=== PATIENT | male | born 1950 | race Caucasian/White ===

== ENCOUNTER → 2017-07-15 | Outpatient (CLI) | payer BC, MEDICARE ==
--- NOTE | 2017-07-15 08:15 | US ---
EXAMINATION TYPE: US abdomen complete DATE OF EXAM: 07/15/2017 COMPARISON: NONE CLINICAL HISTORY: 67-year-old male abnormal Liver functions Studies R94.5. TECHNIQUE: Multiple sonographic images of the abdomen are obtained. FINDINGS: Liver Length: 14.9 cm Gallbladder: Surgically absent CBD: 6.4 mm Spleen: 13.9 cm Right Kidney: 11.8 x 5.5 x 5.2 cm Left Kidney: 10.9 x 5.9 x 5.4 cm Pancreas: Obscured by bowel gas Liver: Heterogeneous and echogenic. The secondary limits assessment for focal lesion. No obvious lesi on identified. Gallbladder: Surgically absent CBD: Borderline dilated but within normal limits postcholecystectomy status. Spleen: Borderline enlarged Right Kidney: No hydronephrosis Left Kidney: No hydronephrosis Upper IVC: No gross abnormality Abd Aorta: portions of prox and distal obscured by overlying bowel gas, portions visualized wnl IMPRESSION: 1. Heterogeneous and echogenic liver suggests hepatic steatosis or other nonspecific hepatocellular d isease. Correlate with LFTs, liver profile, and patient risk factors. 2. Bile duct caliber (6.4 mm) is within normal limits postcholecystectomy status. 3. Borderline splenomegaly (13.9 cm).
== END | disposition home or self-care (01) ==
LOC: RADUSWWP 06:45
PROVIDERS: ATTEND Internal Medicine
DX: R16.1 Splenomegaly, not elsewhere classified (principal); Z90.49 Acquired absence of other specified parts of digestive tract
CPT/HCPCS: 76700

== ENCOUNTER → 2018-02-05 | Outpatient (CLI) | payer MEDICARE ==
[~2018-02-05] MED LIST: REGADENOSON 0.4 MG/5 ML SYRINGE IV ONE
--- NOTE | 2018-02-05 13:25 | EST ---
EXERCISE STRESS AGE: 67 SEX: M HT: 68" WT: 265 PROTOCOL: Lexiscan Cardiolite Stress Test HEART RATE REST: 67 BLOOD PRESSURE REST: 131/87 MAXIMUM HEART RATE ACHIEVED: 85 MAXIMUM BLOOD PRESSURE: 149/73 INDICATIONS: Chest pain. CLINICAL INFORMATION: STRESS DATA: Pretesting physical examination showed a heart rate of 67, pressure is 131/87 mmHg. Baseline EKG showed sinus mechanism; 0.4 mg of Lexiscan was given over 15 seconds per protocol with max heart rate was 85 beats per minute and maximum pressure was 149/73 mmHg. Clinically, the patient did not have any symptoms of chest pain or discomfort and the EKG did not show any significant ST or T-wave abnormalities concerning for ischemia. CONCLUSION: 1. Nondiagnostic electrocardiogram stress testing in response to Lexiscan. 2. Please follow up on the Cardiolite portion on a separate report from the Radiology Department. MMODL / IJN: [id number] /
--- NOTE | 2018-02-05 15:31 | NM ---
EXAMINATION TYPE: NM stress lexiscan cardiolite DATE OF EXAM: 02/05/2018 COMPARISON: NONE HISTORY: 67-year-old male with chest pain and palpitations TECHNIQUE: After the intravenous administration of 10.8 mCi Tc 99m Sestamibi - Cardiolite resting SP ECT images acquired 45 minutes post injection. The patient received 0.4mg Lexiscan, 25.3 mCi Tc 99m Sestamibi - Stress images obtained [address] injection FINDINGS: Review of stress and rest SPECT images demonstrates decreased perfusion along the apical inferolatera l wall on stress. However, this finding does not corroborate on the polar maps. Gated analysis shows some thickening here and an estimated left ventricular ejection fraction of 62 %. TID is calculated a t 1.14, within normal limits. IMPRESSION: Possible small area of reversibility along the apical inferolateral wall not corroborated by the galen r maps. Further clinical and EKG correlation recommended. LVEF is estimated at 62%.
== END | disposition home or self-care (01) ==
LOC: RADNMMAIN 07:58
PROVIDERS: ATTEND Internal Medicine
DX: R07.9 Chest pain, unspecified (principal)
CPT/HCPCS: 93017; 78452; A9500; J2785

== ENCOUNTER → 2018-02-26 | Day surgery (SDC) | payer MEDICARE ==
[2018-02-21 13:03] VITALS: BMI 40.7
[~2018-02-26] MED LIST changes: +ALPRAZolam 0.25 MG TAB PO PRN; +ALPRAZolam 0.5 MG TAB PO PRN; +ASPIRIN 325 MG TAB PO STA; +ATORVASTATIN 20 MG TAB PO SCH; +ATORVASTATIN 80 MG TAB PO STA; +HEPARIN SODIUM 1,000 UN/ML (10ML VL) IV ONE; +HEPARIN SODIUM 1,000 UN/ML (10ML VL) ONE; +IOPAMIDOL-370 125ML BTL INJ ONE; +LIDOCAINE 1% INJ 10MG/ML (20 ML MDV) ONE; +LIDOCAINE 1% INJ 10MG/ML (20 ML MDV) SQ ONE; +LOSARTAN-HCTZ 50-12.5 MG 1 EACH TAB PO SCH; +MIDAZOLAM 2 MG/2 ML VIAL ONE; +NITROGLYCERIN SL TABS 0.4 MG TAB SUBLINGUAL PRN; +NON-FORMULARY DRUG (Aspirin [Adult Low Dose Aspirin Ec] 162 MG) PO SCH; -REGADENOSON 0.4 MG/5 ML SYRINGE IV ONE; +RX INFO: IV CONTRAST WAS GIVEN 1 EACH MISC MISCELLANE PRN; +SODIUM CHLORIDE 0.9% 1,000 ML IV SCH; +SODIUM CHLORIDE 0.9% 1,000 ML in EMPTY BAG 1 BAG IV ONE; +VERAPAMIL 2.5 MG/ML 2 ML AMP ONE; +VERAPAMIL SYRINGE (5 MG/10 ML) INTRAARTER ONE; +fentaNYL (PF) 50 MCG/ML 2 ML AMP IV ONE; +fentaNYL (PF) 50 MCG/ML 2 ML AMP ONE
[2018-02-26 06:59] VITALS: RESP 18
[2018-02-26 07:00] LABS: Basophils % (A) 1 %; Eosinophils # (A) 0.1 k/uL (0-0.7); Eosinophils % (A) 3 %; HGB 14.4 gm/dL (13.0-17.5); Lymphocytes # (A) 1.8 k/uL (1.0-4.8); Lymphocytes % (A) 44 %; MCHC 32.8 g/dL (31.0-37.0); MCV 91.5 fL (80.0-100.0); Mean Platelet Volume 7.5; Monocytes # (A) 0.2 k/uL (0-1.0); Monocytes % (A) 6 %; Neutrophils # (A) 1.8 k/uL (1.3-7.7); Neutrophils % (A) 44 %; Platelet Count 127 k/uL (150-450); RBC 4.81 m/uL (4.30-5.90); RDW 14.3 % (11.5-15.5)
[2018-02-26 07:13] LABS: Anion Gap 8 mmol/L; Blood Urea Nitrogen 16 mg/dL (9-20); Calcium 9.4 mg/dL (8.4-10.2); Carbon Dioxide 28 mmol/L (22-30); Chloride 105 mmol/L (98-107); Glucose 164 mg/dL (74-99); Potassium 4.2 mmol/L (3.5-5.1); Sodium 141 mmol/L (137-145)
[2018-02-26 08:46] VITALS: TEMP 98
--- NOTE | 2018-02-26 09:18 | CC ---
CARDIAC CATHETERIZATION REPORT Mr. Luke is a 67-year-old male with known history of hypertension, hyperlipidemia, who presented with symptoms of presyncope as well as arrhythmia. He underwent myocardial perfusion imaging that revealed inferolateral apical wall reversible defect. In view of that, recommendation was made regarding cardiac catheterization. The procedure as well as the risks and complications were discussed with the patient who is in full understanding and agreement. PROCEDURE: Patient was brought to the sugar laboratory assistant in a fasting semi-sedated state after receiving fentanyl and Benadryl and achieving moderate conscious sedated state. Using Xylocaine anesthesia in the Seldinger technique, a 6-Central African sheath was introduced in the right radial artery. Selective right and left coronary angiography performed using 5-Central African 3.5 bend right and left Sharon catheter. Multiple views of the coronary artery including hemiaxial views were obtained. Following that 5-Central African tight pigtail catheter was introduced in the left ventricle and a 30-degree SAWANT view of the left ventricle was obtained. Following that, catheter and sheaths were removed. Hemostasis was obtained with deployment of a TR band. There was no immediate complication. Patient was returned to his room in stable condition. Of note, the patient received 5000 units of intravenous heparin as well as intra-arterial verapamil. FINDINGS: LEFT MAIN: This is a large-sized vessel bifurcating in left circumflex, left anterior descending artery. The left main coronary artery has no evidence of obstructive coronary artery disease. LEFT ANTERIOR DESCENDING ARTERY: This is a large-sized vessel reaching toward the apex with a wraparound apex segment giving rise to a large diagonal branch. The left anterior descending artery is calcified proximally has diffuse mild intimal disease of 10% to 20% without any evidence of high-grade stenosis. LEFT CIRCUMFLEX: This is a nondominant vessel, large in caliber giving rise to an obtuse marginal branch in the mid segment. Distally the second obtuse marginal branch is small in caliber. The left circumflex has mild intimal disease proximally of 10% to 20% without any evidence of high-grade stenosis. RIGHT CORONARY ARTERY: This is a large dominant vessel bifurcating distally PDA posterolateral segment and branches. The right coronary artery is calcified in mid segment and it has 10% to 20% plaque without any evidence of high-grade stenosis. LEFT VENTRICULOGRAM: Left ventriculogram was performed in 30-degree SAWANT view and revealed normal left ventricular size and systolic function. Ejection fraction is 60%. There was evidence of arrhythmia induced mitral regurgitation. HEMODYNAMICS: There was no gradient across the aortic valve. The left ventricular end- diastolic pressure was 14 to 16 mmHg. CONCLUSION: 1. Calcified coronary arteries. 2. Mild triple-vessel coronary artery disease. 3. Normal left ventricular size and systolic function. RECOMMENDATION: In view of finding anatomy, I recommend to continue medical therapy with aggressive coronary risk modification that has been initiated. Those findings and recommendations were discussed with the patient and his family and they are in full understanding and agreement. Duration of procedure 22 minutes. MMODL / IJN: [id number] /
--- NOTE | 2018-02-26 09:24 | LTR ---
February 26, 2018 Re: Cory Luke Dear Dr. Arboleda: I had the opportunity to perform cardiac catheterization on Mr. Luke at [facility] on the 26 of February and a full copy of the procedure note will be forwarded to you. In brief, he was found to have mild triple-vessel coronary artery disease with a preserved left ventricular size and systolic function. Based on those findings, I recommend continue medical therapy with aggressive coronary risk modification that has been initiated. Thank you again for allowing me the opportunity to participate in his care. Please feel free to call for any questions. Sincerely yours, MD NA Mcleod / MAGDIN: [id number] /
[2018-02-26 11:05] VITALS: PULSE 68
[2018-02-26 14:04] VITALS: BP 165/85
== END | disposition home or self-care (01) ==
LOC: CATHCVL 06:19
PROVIDERS: ATTEND Internal Medicine Interventional Cardiology
DX: I25.10 Atherosclerotic heart disease of native coronary artery without angina pectoris (principal); I25.84 Coronary atherosclerosis due to calcified coronary lesion; I10 Essential (primary) hypertension; F17.210 Nicotine dependence, cigarettes, uncomplicated; E78.5 Hyperlipidemia, unspecified; Z79.82 Long term (current) use of aspirin; Z79.899 Other long term (current) drug therapy
CPT/HCPCS: 93458; 80048; 85025; C1894; C1769; J2001; J3010; J1644; Q9967

== ENCOUNTER → 2018-07-23 | Outpatient (CLI) | payer MEDICARE ==
--- NOTE | 2018-07-23 10:50 | US ---
EXAMINATION TYPE: US venous doppler duplex LE LT DATE OF EXAM: 07/23/2018 10:14 AM COMPARISON: US CLINICAL HISTORY: M79.605 Pain left lower leg. Pt states left knee pain/ history of DVT left leg 2014 SIDE PERFORMED: Left TECHNIQUE: The lower extremity deep venous system is examined utilizing real time linear array sonog alejandra with graded compression, doppler sonography and color-flow sonography. VESSELS IMAGED: External Iliac Vein (EIV) Common Femoral Vein Deep Femoral Vein Greater Saphenous Vein * Femoral Vein Popliteal Vein Small Saphenous Vein * Proximal Calf Veins (* superficial vessels) Left Leg: Negative for acute DVT, probable chronic non-occluding thrombus within left popliteal vein IMPRESSION: 1. No evidence for acute DVT. 2. Chronic nonoccluding thrombus as noted.
== END ==
LOC: RADUSWWP 09:55
PROVIDERS: ATTEND Internal Medicine
DX: I82.91 Chronic embolism and thrombosis of unspecified vein (principal)

== ENCOUNTER → 2018-08-06 | Day surgery (SDC) | payer MEDICARE ==
[2018-08-01 15:07] VITALS: BMI 46.5
[~2018-08-06] MED LIST changes: -ALPRAZolam 0.25 MG TAB PO PRN; -ALPRAZolam 0.5 MG TAB PO PRN; -ASPIRIN 325 MG TAB PO STA; -ATORVASTATIN 20 MG TAB PO SCH; -ATORVASTATIN 80 MG TAB PO STA; -HEPARIN SODIUM 1,000 UN/ML (10ML VL) IV ONE; -HEPARIN SODIUM 1,000 UN/ML (10ML VL) ONE; -IOPAMIDOL-370 125ML BTL INJ ONE; +LACTATED RINGERS 1,000 ML IV SCH; +LIDOCAINE 1% 20 ML VIAL (10MG/ML) FOR IV START INTRADERMA PRN; -LIDOCAINE 1% INJ 10MG/ML (20 ML MDV) SQ ONE; -LOSARTAN-HCTZ 50-12.5 MG 1 EACH TAB PO SCH; -MIDAZOLAM 2 MG/2 ML VIAL ONE; -NITROGLYCERIN SL TABS 0.4 MG TAB SUBLINGUAL PRN; -NON-FORMULARY DRUG (Aspirin [Adult Low Dose Aspirin Ec] 162 MG) PO SCH; +PROPOFOL 10 MG/ML 20 ML VIAL IV ONE; -RX INFO: IV CONTRAST WAS GIVEN 1 EACH MISC MISCELLANE PRN; -SODIUM CHLORIDE 0.9% 1,000 ML IV SCH; -SODIUM CHLORIDE 0.9% 1,000 ML in EMPTY BAG 1 BAG IV ONE; -VERAPAMIL 2.5 MG/ML 2 ML AMP ONE; -VERAPAMIL SYRINGE (5 MG/10 ML) INTRAARTER ONE; -fentaNYL (PF) 50 MCG/ML 2 ML AMP IV ONE; -fentaNYL (PF) 50 MCG/ML 2 ML AMP ONE
[2018-08-06 09:12] VITALS: RESP 16; TEMP 97.7
--- NOTE | 2018-08-06 09:56 | P.GSHP ---
History of Present Illness H&P Date: 08/06/18 Chief Complaint: History of colon polyps This is a 68-year-old male who presents today for colonoscopy. Patient's previous history of colon polyps. Past Medical History Past Medical History: Deep Vein Thrombosis (DVT), Hyperlipidemia, Hypertension, Skin Disorder Additional Past Medical History / Comment(s): hx dvt groin and left leg, dry rash on elbows, History of Any Multi-Drug Resistant Organisms: None Reported Past Surgical History: Cholecystectomy, Orthopedic Surgery Additional Past Surgical History / Comment(s): arthroscopy left knee, laser treatment for varicose veins, COLONOSCOPY Past Anesthesia/Blood Transfusion Reactions: No Reported Reaction Smoking Status: Former smoker - Past Family History Father Family Medical History: Deep Vein Thrombosis (DVT), Pulmonary Embolus Medications and Allergies Home Medications Medication Instructions Recorded Confirmed Type Aspirin [Adult Low Dose Aspirin EC] 162 mg PO DAILY 07/05/15 08/06/18 History Atorvastatin [Lipitor] 20 mg PO DAILY 07/05/15 08/06/18 History Losartan-Hctz 50-12.5 mg [Hyzaar 1 each PO DAILY 02/26/18 08/06/18 History 50-12.5] Baclofen [Lioresal] 10 mg PO BID PRN 08/01/18 08/06/18 History Allergies Allergy/AdvReac Type Severity Reaction Status Date / Time No Known Allergies Allergy Verified 08/06/18 09:19 Surgical - Exam Vital Signs Temp Pulse Resp BP Pulse Ox 97.7 F 85 16 129/73 98 08/06/18 09:07 08/06/18 09:07 08/06/18 09:07 08/06/18 09:07 08/06/18 09:07 - General well developed, well nourished, no distress - Eyes PERRL - ENT normal pinna - Neck no masses - Respiratory normal expansion - Cardiovascular Rhythm: regular - Abdomen Abdomen: soft, non tender Assessment and Plan Assessment: History of colon polyps. We'll perform colonoscopy.
--- NOTE | 2018-08-06 10:11 | P.OP ---
Date of Procedure: 08/06/18 Preoperative Diagnosis: History of colon polyps Postoperative Diagnosis: Transverse colon polyp Diverticulosis Procedure(s) Performed: Colonoscopy Anesthesia: MAC Surgeon: Arya Nance Pathology: other (Transverse colon polyp) Condition: stable Disposition: PACU Description of Procedure: The patient's placed on the endoscopy table in the lateral position. He received IV sedation. Digital rectal exam was performed which revealed no abnormalities. The flexible colonoscope was then placed patient anus passed throughout the entire colon. The ileocecal valve was visualized. The cecum, ascending was normal. Scope was then brought back the entrance colon and a polyp was visualized. This removed with the snare. Scope was withdrawn the remainder of the trans-colon appeared normal. The descending; had mild diverticular changes. Scope was then brought back the rectum and this appeared normal. Scope was withdrawn for patient.
[2018-08-06 10:32] VITALS: BP 120/79; PULSE 74
--- NOTE | 2018-08-06 10:36 | P.OP ---
Date of Procedure: 08/06/18 Preoperative Diagnosis: History: Polyps Postoperative Diagnosis: Right colon polyp Transverse colon polyp Procedure(s) Performed: Colonoscopy Anesthesia: MAC Surgeon: Arya Nance Pathology: other (Colon polyps) Condition: stable Disposition: PACU Description of Procedure: The patient's placed on the endoscopy table in the lateral position. He received IV sedation. Digital rectal exam was performed which revealed no rebound. The prostate was symmetric without nodules. The flexible colonoscope was then placed patient anus and passed throughout the entire colon. The ileocecal valve lesions. The cecum was examined. This appeared normal. In the right colon there was a sessile polyp. This was removed with the cold forcep. Scope was then brought back into the proximal transverse colon there were several polyps seen was removed with snare. Scope was withdrawn the remainder of the transverse colon descending colon and sigmoid colon appeared normal. Scope was then brought back the rectum and this appeared normal. Scope was withdrawn for patient.
== END | disposition home or self-care (01) ==
LOC: ORWHC2ENDO 08:45
PROVIDERS: ATTEND Surgery
DX: Z12.11 Encounter for screening for malignant neoplasm of colon (principal); D12.3 Benign neoplasm of transverse colon; K57.30 Diverticulosis of large intestine without perforation or abscess without bleeding; Z86.010 Personal history of colon polyps; E78.5 Hyperlipidemia, unspecified; I10 Essential (primary) hypertension; K21.0 Gastro-esophageal reflux disease with esophagitis; N40.0 Benign prostatic hyperplasia without lower urinary tract symptoms; R00.1 Bradycardia, unspecified; M79.605 Pain in left leg; E78.00 Pure hypercholesterolemia, unspecified; E66.01 Morbid (severe) obesity due to excess calories; Z68.41 Body mass index [BMI] 40.0-44.9, adult; Z79.82 Long term (current) use of aspirin; Z79.899 Other long term (current) drug therapy; Z90.49 Acquired absence of other specified parts of digestive tract; Z86.718 Personal history of other venous thrombosis and embolism; Z87.891 Personal history of nicotine dependence
CPT/HCPCS: 88305; 45385; J2001; J2704

== ENCOUNTER 2019-08-28 10:50 | Day surgery (SDC) | payer MEDICARE ==
[2019-08-26 09:34] VITALS: BMI 36.8
[~2019-08-28 10:50] MED LIST changes: -LIDOCAINE 1% 20 ML VIAL (10MG/ML) FOR IV START INTRADERMA PRN; -LIDOCAINE 1% INJ 10MG/ML (20 ML MDV) ONE; -PROPOFOL 10 MG/ML 20 ML VIAL IV ONE
[2019-08-28 11:07] VITALS: TEMP 97.3
[2019-08-28 11:13] LABS: Glucose,Whole Blood 125 mg/dL (75-99)
[2019-08-28] MEDS ORDERED: PROPOFOL 10 MG/ML 20 ML VIAL IV ONE (11:44)
--- NOTE | 2019-08-28 12:05 | P.GSHP ---
History of Present Illness H&P Date: 08/28/19 Chief Complaint: GI Bleed This is a 69-year-old male who presents today for colonoscopy. Patient history of GI bleed. Past Medical History Past Medical History: Diabetes Mellitus, Deep Vein Thrombosis (DVT), Hyperlipidemia, Hypertension, Skin Disorder Additional Past Medical History / Comment(s): hx dvt groin and left leg,. POSITIVE COLOGARD History of Any Multi-Drug Resistant Organisms: None Reported Past Surgical History: Cholecystectomy, Orthopedic Surgery Additional Past Surgical History / Comment(s): arthroscopy left knee, laser treatment for varicose veins, COLONOSCOPY Past Anesthesia/Blood Transfusion Reactions: No Reported Reaction Smoking Status: Former smoker - Past Family History Father Family Medical History: Deep Vein Thrombosis (DVT), Pulmonary Embolus Medications and Allergies Home Medications Medication Instructions Recorded Confirmed Type Aspirin [Adult Low Dose Aspirin EC] 162 mg PO DAILY 07/05/15 08/26/19 History Atorvastatin [Lipitor] 20 mg PO DAILY 07/05/15 08/26/19 History Valsartan/Hydrochlorothiazide 1 each PO DAILY 08/26/19 08/28/19 History [Valsartan-Hctz 160-12.5 mg Tab] metFORMIN HCL [Glucophage] 500 mg PO BID 08/26/19 08/26/19 History Allergies Allergy/AdvReac Type Severity Reaction Status Date / Time No Known Allergies Allergy Verified 08/28/19 11:02 Surgical - Exam Vital Signs Temp Pulse Resp BP Pulse Ox 97.3 F L 74 17 127/67 99 08/28/19 11:06 08/28/19 11:06 08/28/19 11:06 08/28/19 11:06 08/28/19 11:06 - General well developed, well nourished, no distress - Eyes PERRL - ENT normal pinna - Neck no masses, no bruits - Respiratory normal expansion - Cardiovascular Rhythm: regular - Abdomen Abdomen: soft, non tender Results - Labs Abnormal Lab Results - Last 24 Hours (Table) 08/28/19 Range/Units 11:10 POC Glucose (mg/dL) 125 H (75-99) mg/dL Assessment and Plan Assessment: GI bleed. We'll perform colonoscopy
[2019-08-28 12:08] VITALS: RESP 16
--- NOTE | 2019-08-28 12:10 | P.OP ---
Date of Procedure: 08/28/19 Preoperative Diagnosis: GI bleed Postoperative Diagnosis: Diverticulosis Procedure(s) Performed: Colonoscopy Anesthesia: MAC Surgeon: Arya Nance Pathology: none sent Condition: stable Disposition: PACU Description of Procedure: The patient's placed on the endoscopy table in the lateral position. She received IV sedation. Digital rectal exam was performed which revealed no abnormalities. The prostate was symmetric without nodules. The possible colonoscope was then placed anus passed throughout the entire colon. The ileocecal valve was visualized. The cecum, ascending and transverse colon appeared normal. In the descending; there was moderate diverticular changes. The colonoscope was then brought back into the rectum this appeared normal. Scope withdrawn for patient.
[2019-08-28 12:27] VITALS: BP 125/76; PULSE 71
== END 2019-08-28 12:55 | disposition home or self-care (01) ==
LOC: ORWHC2ENDO 10:50
PROVIDERS: ATTEND Surgery
DX: K57.31 Diverticulosis of large intestine without perforation or abscess with bleeding (principal); I10 Essential (primary) hypertension; E11.9 Type 2 diabetes mellitus without complications; E78.5 Hyperlipidemia, unspecified; K21.9 Gastro-esophageal reflux disease without esophagitis; Z79.82 Long term (current) use of aspirin; Z79.84 Long term (current) use of oral hypoglycemic drugs; Z79.899 Other long term (current) drug therapy; Z86.718 Personal history of other venous thrombosis and embolism; Z87.891 Personal history of nicotine dependence; Z90.49 Acquired absence of other specified parts of digestive tract; Z82.49 Family history of ischemic heart disease and other diseases of the circulatory system
CPT/HCPCS: 45378; J2704

== ENCOUNTER → 2020-12-07 | Outpatient (CLI) | payer MEDICARE ==
[~2020-12-07] MED LIST changes: -LACTATED RINGERS 1,000 ML IV SCH; +REGADENOSON 0.4 MG/5 ML SYRINGE IV PRN
--- NOTE | 2020-12-07 11:43 | NM ---
EXAMINATION TYPE: NM stress lexiscan cardiolite DATE OF EXAM: 12/07/2020 COMPARISON: Prior Cardiolite Lexiscan February 06, 2028 seen HISTORY: Chest pain. Abnormal EKG. History of tobacco use in the past. Family history of heart attack . History of hypertension and hypercholesterolemia. TECHNIQUE: After the intravenous administration of 9.7 mCi Tc 99m Sestamibi - Cardiolite resting SPE CT images acquired 45 minutes post injection. The patient received 0.4mg Lexiscan, 25.2 mCi Tc 99m Sestamibi - Stress images obtained [address] injection FINDINGS: Review of stress and rest SPECT images demonstrates diminished radiotracer uptake on all 3 views in t he anterolateral wall mid to apical level on stress images versus rest images in which area of acute ischemia cannot be excluded.. Gated analysis shows normal wall motion with an estimated left ventric ular ejection fraction of 61 %. IMPRESSION: Cannot exclude small area of acute ischemia anterolateral left ventricular wall mid to ap ical level. Advised clinical and EKG correlation to determine need for further workup by direct modesto ter angiogram. A Yellow level critical message alert has been initiated for Nestor Arboleda MD via the [facility] Results System on 12/07/2020 11:39 AM. This message alert has been sent to Nestor Arboleda MD via the preferences provided by the clinician for the receipt of Radiology Critical Findings. Message ID [id number].
--- NOTE | 2020-12-07 14:15 | EST ---
EXERCISE STRESS DATE OF SERVICE: INDICATION: Chest pain. AGE.: 70 SEX: M HT: @@ WT: @@ PROTOCOL: @@ STAGE: @@ DURATION OF EXERCISE: @@ HEART RATE REST: @@ BLOOD PRESSURE REST: @@ MAXIMUM HEART RATE ACHIEVED: @@ MAXIMUM BLOOD PRESSURE: @@ 85% MPHR: @@ 100% MPHR: @@ METS: @@ STRESS DATA: Heart rate is 57, pressure is 147/85 mmHg. Baseline EKG showed sinus mechanism 0.4 mg of Lexiscan given over 15 seconds per protocol. Max heart rate was 72 beats per minute. Maximum pressure was 143/81 mmHg. Clinically, the patient did not have any symptoms and the EKG did not show any significant changes. CONCLUSION: 1. Nondiagnostic electrocardiogram stress testing in response to Lexiscan. 2. Please follow up on the Cardiolite portion on a separate report from Radiology Department. MMODL / IJN: [id number] /
== END | disposition home or self-care (01) ==
LOC: RADNMMAIN 07:48
PROVIDERS: ATTEND Internal Medicine
DX: R07.9 Chest pain, unspecified (principal); I10 Essential (primary) hypertension; E78.00 Pure hypercholesterolemia, unspecified; Z82.49 Family history of ischemic heart disease and other diseases of the circulatory system; Z87.891 Personal history of nicotine dependence
CPT/HCPCS: 93017; 78452; A9500; J2785

== ENCOUNTER 2020-12-16 07:59 | Day surgery (SDC) | payer MEDICARE ==
[2020-12-14 11:30] VITALS: BMI 38.6
[~2020-12-16 07:59] MED LIST changes: +ALPRAZolam 0.25 MG TAB PO PRN; +ALPRAZolam 0.5 MG TAB PO PRN; +ASPIRIN 325 MG TAB PO STA; +ATORVASTATIN 80 MG TAB PO STA; +NITROGLYCERIN SL TABS 0.4 MG TAB SUBLINGUAL PRN; -REGADENOSON 0.4 MG/5 ML SYRINGE IV PRN; +SODIUM CHLORIDE 0.9% 1,000 ML in EMPTY BAG 1 BAG IV ONE
[2020-12-16 08:25] VITALS: RESP 18; TEMP 98
[2020-12-16 08:29] LABS: Glucose,Whole Blood 147 mg/dL (75-99)
[2020-12-16] MEDS ORDERED: VERAPAMIL 2.5 MG/ML 2 ML AMP ONE (08:33)
[2020-12-16] MEDS ORDERED: LIDOCAINE 1% INJ 10MG/ML (20 ML MDV) ONE (08:33)
[2020-12-16] MEDS ORDERED: fentaNYL (PF) 50 MCG/ML 2 ML AMP ONE (08:47)
[2020-12-16] MEDS ORDERED: fentaNYL (PF) 50 MCG/ML 2 ML AMP IVP ONE (09:13)
[2020-12-16] MEDS ORDERED: MIDAZOLAM 2 MG/2 ML VIAL IVP ONE (09:18)
[2020-12-16] MEDS ORDERED: LIDOCAINE 1% INJ 10MG/ML (20 ML MDV) SQ ONE (09:19)
[2020-12-16] MEDS ORDERED: VERAPAMIL SYRINGE (5 MG/10 ML) INTRAARTER ONE (09:20)
[2020-12-16] MEDS ORDERED: HEPARIN SODIUM 1,000 UN/ML (10ML VL) ONE (09:23)
[2020-12-16] MEDS ORDERED: HEPARIN SODIUM 1,000 UN/ML (10ML VL) IVP ONE (09:25)
[2020-12-16] MEDS ORDERED: IOPAMIDOL-370 125ML BTL INJ ONE (09:32)
[2020-12-16] MEDS ORDERED: RX INFO: IV CONTRAST WAS GIVEN 1 EACH MISC MISCELLANE PRN (09:50)
[2020-12-16] MEDS ORDERED: SODIUM CHLORIDE 0.9% 1,000 ML IV SCH (10:00)
--- NOTE | 2020-12-16 10:27 | CC ---
CARDIAC CATHETERIZATION REPORT Mr. Luke is a 70-year-old male with known history of hypertension, hyperlipidemia, diabetes mellitus, who has been complaining of progressive dyspnea on exertion as well as episode of chest discomfort. In view of that, he underwent myocardial perfusion imaging that revealed evidence of inducible ischemia involving the anterior wall. Recommendation made regarding cardiac catheterization. The procedure as well as the risks and the complications were discussed with the patient who is in full understanding and agreement. PROCEDURE: Patient was brought to woven label designer in a fasting semisedated state after receiving fentanyl and Benadryl and achieving moderate conscious sedated state. Using Xylocaine anesthesia and Seldinger technique, a 6-Azeri sheath was introduced in the right radial artery. Selective right and left coronary angiography performed using 5-Azeri 3.5 bend right and left Sharon catheter. Multiple views of the coronary artery including hemiaxial views were obtained. Following that, catheter and sheath were removed. Hemostasis was obtained with deployment of TR band. There was no immediate complication. Patient is returned to his room in stable condition. Of note, the patient received 5000 units of intravenous heparin as well as intra-arterial verapamil. FINDINGS: FLUOROSCOPY: There was severe calcification involving all the coronary arteries. LEFT MAIN: This is a large-sized vessel, bifurcating into left circumflex, left anterior ascending coronary artery, left main coronary artery has no evidence of high- grade stenosis. LEFT ANTERIOR DESCENDING ARTERY. This is a large-sized vessel giving rise to a large diagonal branch. The left anterior descending coronary artery has diffuse intimal disease of about 10-20 percent in the proximal segment and 30% in the mid segment. The rest of the vessel has no high-grade stenosis. LEFT CIRCUMFLEX: This is a large nondominant vessel giving rise to 3 obtuse marginal branches. The left circumflex has mild diffuse intimal disease of 20-30% without any evidence of high-grade stenosis. RIGHT CORONARY ARTERY: This is a dominant vessel, bifurcating into PDA and PLV calcified in the mid segment, has intimal disease without any evidence of high-grade stenosis. LEFT VENTRICULOGRAM: Left ventriculogram was not performed. CONCLUSION: 1. Calcified coronary arteries. 2. Mild triple-vessel coronary artery disease. 3. Transient episode of 2:1 conduction throughout the procedure. RECOMMENDATION: In view of findings and anatomy, I have recommended continued medical therapy with aggressive coronary risk modifications that have been initiated. The second-degree AV block will be followed further to see if any further intervention is needed. Those findings and recommendations were discussed with the patient and his family who are in full understanding and agreement. Duration of sedation is 14 minutes. MMODL / IJN: [id number] /
--- NOTE | 2020-12-16 10:31 | LTR ---
DATE OF SERVICE: 12/16/[address] Arboleda: I had the pleasure of performing cardiac catheterization on Mr. Luke at [facility] on December 16 and a full copy of procedure note will be forwarded to you. In brief, he was found to have calcified coronary arteries with mild triple-vessel coronary artery disease. Incidentally, he was found to have episode of second-degree AV block with 2:1 conduction. At this time, I will continue medical therapy and further evaluation of his AV block will be needed. I will keep you updated on his progress. Thank you again for allowing me to participate in his care. Please feel free to call for any questions. Sincerely, NA / MAGDIN: [id number] /
[2020-12-16 12:24] VITALS: BP 159/66
[2020-12-16 12:30] VITALS: PULSE 64
[2020-12-16] MEDS ORDERED: ATORVASTATIN 20 MG TAB PO SCH (21:00)
[2020-12-17] MEDS ORDERED: VALSARTAN 160 MG TAB PO SCH (09:00)
[2020-12-17] MEDS ORDERED: ASPIRIN 81 MG PO SCH (09:00)
[2020-12-17] MEDS ORDERED: hydroCHLOROthiazide 12.5 MG CAP PO SCH (09:00)
== END 2020-12-16 13:30 | disposition home or self-care (01) ==
LOC: CATHCVL 07:59
PROVIDERS: ATTEND Internal Medicine Interventional Cardiology
DX: I25.10 Atherosclerotic heart disease of native coronary artery without angina pectoris (principal); I25.84 Coronary atherosclerosis due to calcified coronary lesion; I44.30 Unspecified atrioventricular block; I10 Essential (primary) hypertension; E78.2 Mixed hyperlipidemia; E78.00 Pure hypercholesterolemia, unspecified; E11.9 Type 2 diabetes mellitus without complications; Z72.0 Tobacco use; Z98.890 Other specified postprocedural states; Z82.49 Family history of ischemic heart disease and other diseases of the circulatory system; Z87.891 Personal history of nicotine dependence; Z79.84 Long term (current) use of oral hypoglycemic drugs; Z79.82 Long term (current) use of aspirin; Z79.899 Other long term (current) drug therapy
CPT/HCPCS: 93458; 87635; C1894; C1769; J2250; J2001; J3010; J1644; Q9967

== ENCOUNTER → 2021-11-20 | Outpatient (CLI) | payer MEDICARE ==
--- NOTE | 2021-11-20 14:54 | XR ---
EXAMINATION TYPE: XR knee limited bilateral DATE OF EXAM: 11/20/2021 CLINICAL HISTORY: Bilateral knee pain. TECHNIQUE: 2 views of the bilateral knees are obtained. COMPARISON: None. FINDINGS: There is no acute fracture/dislocation evident in either knee. Moderate to severe medial t ibiofemoral compartment joint space loss with mild spurring is present bilaterally. . There is asymme tric mild to moderate spurring lateral tibiofemoral compartment on the left knee. There is moderate n arrowing bilateral patellofemoral compartments. There is asymmetric moderate spurring left patellofem oral compartment. There are prominent osteophytes at the distal quadriceps tendon insertion bilateral ly. Suspect small to moderate size prepatellar joint effusions greater in the left knee versus right knee. IMPRESSION: As above.
== END | disposition home or self-care (01) ==
LOC: RADXRMAIN 14:11
PROVIDERS: ATTEND Internal Medicine
DX: M25.862 Other specified joint disorders, left knee (principal); M25.861 Other specified joint disorders, right knee

== ENCOUNTER → 2021-12-08 | Outpatient (CLI) | payer MEDICARE | END | disposition home or self-care (01) | LOC: LABPAT 13:48 | PROVIDERS: ATTEND Orthopaedic Surgery | DX: Z01.812 Encounter for preprocedural laboratory examination (principal); Z22.322 Carrier or suspected carrier of Methicillin resistant Staphylococcus aureus; M17.12 Unilateral primary osteoarthritis, left knee | CPT/HCPCS: 87070 ==

== ENCOUNTER → 2021-12-21 | Outpatient (CLI) | payer MEDICARE ==
--- NOTE | 2021-12-22 08:33 | CT ---
EXAMINATION TYPE: CT urogram wo/w con DATE OF EXAM: 12/21/2021 COMPARISON: None HISTORY: hematuria CT DLP: 4816.5 mGycm CONTRAST: Performed and with IV Contrast, patient injected with 70cc mL of Isovue 300. CT Urography was performed with unenhanced followed by enhanced images of the kidneys, ureters and ur inary bladder. Delayed images were obtained. 3d reconstruction was perfromed at a separate work sta tion. FINDINGS: KIDNEYS/BLADDER: No hydronephrosis. 3 mm nonobstructing calculus lower pole left kidney. 1.7 cm simp le cyst mid pole left kidney. Urinary bladder grossly unremarkable. LUNG BASES-: No visible nodule. No infiltrate. Coronary vascular calcifications noted. LIVER/GB: The gallbladder surgically absent. No space occupying hepatic lesion. Biliary tree is of no rmal caliber. PANCREAS: No inflammation. No distinct mass. SPLEEN: No splenic enlargement. No lesion seen. ADRENALS: No nodule. No thickening. BOWEL: Normal appendix. Normal bowel caliber. No inflammation. GENITAL ORGANS: There is prostate gland enlargement with Central glandular calcification. LYMPH NODES: No greater than 1cm abdominal or pelvic lymph nodes are appreciated. AORTA: No significant abnormality. OSSEOUS STRUCTURES: Moderate to severe multilevel degenerative disc space narrowing and spondylosis. OTHER: Fat-containing umbilical hernia. IMPRESSION: 1. Nonobstructing left renal calculus. 2. Simple cyst left kidney. No solid mass is detected. 3. Prostate gland enlargement.
== END | disposition home or self-care (01) ==
LOC: RADCTMAIN 13:40
PROVIDERS: ATTEND Internal Medicine
DX: N20.0 Calculus of kidney (principal); N28.1 Cyst of kidney, acquired; N40.0 Benign prostatic hyperplasia without lower urinary tract symptoms
CPT/HCPCS: 82565; 84520; 74178; 36415; 74400; Q9967

== ENCOUNTER 2022-01-24 06:03 | Day surgery (SDC) | payer MEDICARE ==
--- NOTE | 2022-01-23 18:28 | HP ---
HISTORY AND PHYSICAL DATE OF SURGERY: 01/24/2022 Cory Luke is a 71-year-old gentleman seen with symptomatic left knee osteoarthritis. We discussed options for treatment. He elected to proceed with left total knee arthroplasty. Consent was obtained. Clearance was provided by Dr. Arboleda. PAST MEDICAL HISTORY: Hypertension, hyperlipidemia, [id number] diabetes. PAST SURGICAL HISTORY: Bilateral knee arthroscopy, cholecystectomy. DAILY MEDICATIONS: Aspirin, atorvastatin, metformin, valsartan/hydrochlorothiazide. ALLERGIES: NONE. SOCIAL HISTORY: He denies tobacco use. PHYSICAL EVALUATION OF THE LEFT KNEE: Range of motion is zero to 120. Mild effusion. Tenderness, medial joint line. Crepitus, medial and patellofemoral compartments with range of motion. Pain with patellofemoral compression. Ligaments stable. Hip rotation without pain. Distal neurovascular exam intact. Radiographs of the left knee revealed severe osteoarthritic changes. IMPRESSION: 1. Left knee osteoarthritis. 2. Hypertension. 3. Hyperlipidemia. 4. Pyd-ollbjtf-xnuchpfth diabetes. PLAN: Left total knee arthroplasty. MMODL / IJN: [id number] /
[~2022-01-24 06:03] MED LIST changes: +ACETAMINOPHEN TAB 500 MG TAB PO PRN; -ALPRAZolam 0.25 MG TAB PO PRN; -ALPRAZolam 0.5 MG TAB PO PRN; -ASPIRIN 325 MG TAB PO STA; -ATORVASTATIN 80 MG TAB PO STA; +MELOXICAM 7.5 MG TAB PO PRN; -NITROGLYCERIN SL TABS 0.4 MG TAB SUBLINGUAL PRN; -SODIUM CHLORIDE 0.9% 1,000 ML in EMPTY BAG 1 BAG IV ONE; +TRANEXAMIC ACID IN NACL,ISO-OS 1,000 MG in SALINE 1 100ML.BAG IVPB PRN
[2022-01-24] MEDS ORDERED: DEXAMETHASONE SOD PHOSPHATE 4 MG/ML 1 ML VIAL IV ONE (06:05)
[2022-01-24] MEDS ORDERED: ONDANSETRON 4 MG/2 ML VIAL IVP ONE (06:05)
[2022-01-24] MEDS ORDERED: LIDOCAINE 1% (10MG/ML) FOR IV START INTRADERMA PRN (06:05)
[2022-01-24] MEDS: LACTATED RINGERS 1,000 ML IV SCH ×3 (06:55→19:37)
[2022-01-24 06:56] LABS: Glucose,Whole Blood 144 mg/dL (70-110)
[2022-01-24] MEDS ORDERED: METOCLOPRAMIDE 5 MG/ML 2 ML VIAL IVP PRN (07:00)
[2022-01-24] MEDS ORDERED: fentaNYL (PF) 50 MCG/ML 2 ML AMP IVP ONE (07:03)
[2022-01-24] MEDS ORDERED: MIDAZOLAM 2 MG/2 ML VIAL IVP ONE (07:03)
[2022-01-24] MEDS ORDERED: PROPOFOL 10 MG/ML 20 ML VIAL IV ONE (07:23)
[2022-01-24] MEDS ORDERED: GLYCOPYRROLATE 0.2 MG/ML 2 ML VIAL ONE (07:23)
[2022-01-24] MEDS ORDERED: ROPIVACAINE 5 MG/ML 30 ML VIAL ONE (07:23)
[2022-01-24] MEDS ORDERED: TRANEXAMIC ACID IN NACL,ISO-OS 1,000 MG/100 ML BAG ONE (07:23)
[2022-01-24] MEDS ORDERED: MIDAZOLAM 2 MG/2 ML VIAL ONE (07:23)
[2022-01-24] MEDS ORDERED: SODIUM CHLORIDE 0.9% (PF) 10 ML VIAL ONE (07:23)
[2022-01-24] MEDS ORDERED: fentaNYL (PF) 50 MCG/ML 2 ML AMP ONE (07:23)
[2022-01-24] MEDS ORDERED: ROPIVACAINE 0.2%-NS ON-Q PUMP 1,090 MG, EMPTY PAIN BALL 1 EACH MISCELLANE PRN (08:20)
--- NOTE | 2022-01-24 08:22 | P.ANPRN ---
Procedure Note - Anesthesia - Nerve Block Performed Left Adductor Canal Time Out Performed: Yes (:) Date of Procedure: 01/24/22 Procedure Start Time: Procedure Stop Time: Location of Patient: PreOp Indication: Acute Post-Operative Pain, Requested by Surgeon (Dr Damon) Sedation Type: Sedate with meaningful contact maintained Preparation: Sterile Prep, Sterile Dressing Position: Supine Catheter: Indwelling Needle Types: Pajunk Needle Gauge: 21 Ultrasound used to visualize needle placement: Yes Ultrasound used to observe medication spread: Yes Injectate: 0.5% Ropivacaine (see comment for volume) (15cc) Blood Aspirated: No Pain Paresthesia on Injection Noted: No Resistance on Injection: Normal Image Stored and Saved: Yes Events: Uneventful and Well Tolerated
--- NOTE | 2022-01-24 08:23 | P.ANPRN ---
Procedure Note - Anesthesia - Nerve Block Performed Left iPack Time Out Performed: Yes Date of Procedure: 01/24/22 Procedure Start Time: 07:14 Procedure Stop Time: :21 Location of Patient: PreOp Indication: Acute Post-Operative Pain, Requested by Surgeon (Dr Damon) Sedation Type: Sedate with meaningful contact maintained Preparation: Sterile Prep Position: Supine Catheter: None Needle Types: Pajunk Needle Gauge: 21 Ultrasound used to visualize needle placement: Yes Ultrasound used to observe medication spread: Yes Injectate: 0.5% Ropivacaine (see comment for volume) (15cc + 5cc PF Normal saline) Blood Aspirated: No Pain Paresthesia on Injection Noted: No Resistance on Injection: Normal Image Stored and Saved: Yes Events: Uneventful and Well Tolerated
[2022-01-24] MEDS ORDERED: LACTATED RINGERS 1,000 ML IV ONE (09:08)
--- NOTE | 2022-01-24 09:09 | P.OP ---
Date of Procedure: 01/24/22 Preoperative Diagnosis: Left knee osteoarthritis Postoperative Diagnosis: Left knee osteoarthritis Procedure(s) Performed: Left total knee arthroplasty Implants: 1. Depuy attune size 7 left cruciate retaining cemented femur 2. Depuy attune size 8 fixed bearing cemented tibial baseplate 3. Depuy attune size 7 fixed bearing cruciate retaining 14 mm polyethylene tibial insert 4. Depuy attune 41 mm all polyethylene cemented patella Anesthesia: regional (Adductor canal catheter, Ipack block), spinal Surgeon: Karri Damon Gis Developer #1: Kulwant Caruso Estimated Blood Loss (ml): 50 Pathology: other (Bone) Condition: stable Disposition: PACU Indications for Procedure: 71-year-old patient seen with symptomatic left knee osteoarthritis. After treatment options were discussed, he elected to proceed with total knee a rthroplasty. Operative Findings: See description of procedure Description of Procedure: Patient was taken to the operative suite after having an adductor canal catheter placed by the department of anesthesia as well as an IPack block for postoperative pain management. Patient underwent a spinal anesthetic by the department of anesthesia. Patient was given preoperative IV intake antibiotics and TXA. A well-padded tourniquet was placed about the left lower extremity. The lower extremity was then prepped and draped in the normal sterile orthopedic fashion. The extremity was elevated, a tourniquet was insufflated to 300. A standard anterior incision was made sharply through skin. Dissection was taken down through the subcutaneous soft tissues down to the extensor mechanism. A medial arthrotomy was performed, patella was everted and knee was flexed. There was advanced osteoarthritis noted. I introduced my distal intramedullary fe moral drill. I then introduced the distal femoral cutting jig. Jl BAER secured the cutting jig with 2 pins. I held retractors in position while Jl BAER performed the distal femoral resection through the guide area we now removed her distal femoral cutting guide. We now placed our 4-in-1 femoral cutting block and positioned and it was secured with 2 pins by Jl BAER while I held the block in position. The distal femoral finishing was now completed. A proximal tibial cutting guide was positioned. I held the guide in the appropriate position with both hands well Jl BAER inserted stabilizing pins into the guide. Proximal tibial cut was made. We now placed a trial femoral component into position, along with an appropriate size tibial tray and insert. We now took the knee through range of motion and had full extension good flexion and good overall soft tissue balance noted. The patella was everted and stabilized with 2 towel clips held by Jl BAER while I performed a flush with patellar quad tendon utilizing a fresh sawblade. We templated the patella, appropriate drill holes were made. An appropriate trial patella was positioned, knee was taken through full range of motion with the patella tracking very nicely. The trial patella was removed. Drill holes were made through the femoral component. All trial components were removed after mar suraj off the appropriate rotation of the tibia. Retractors were now positioned along the proximal tibia. An appropriate keel punch was made with the appropriate size tibial guide by myself on Jl BAER assisted by holding retractors. At this point appropriate size implants were chosen and opened. The joint was irrigated copiously with pulse lavage mechanical irrigation. The posterior capsule was infiltrated with local analgesic. The wound was irrigated with pulse lavage mechanical irrigation. We mixed antibiotic methylmethacrylate. We placed the knee into flexion. We placed multiple retractors assisted by Jl BAER to expose the proximal tibia. Once the methyl methacrylate was ready, the tibial component was cemented into place removing any excess methylmethacrylate form by both myself and Jl BAER. The femoral component was cemented into place removing the removing any excess methylmethacrylate performed by both myself and Jl BAER. We then inserted the appropriate size polyethylene tibial insert. We made sure that it was locked into position. We took the knee into full extension, and then back in a flexion making sure we had removed any excess methylmethacrylate. The patellar component was then cemented down and secured with clamp. Excess methylmethacrylate removed. We kept the knee in full extension, patellar clamp in position until methylmethacrylate had hardened. Once it had hardened the patellar clamp was removed. The knee was taken through full range of motion. The patella tracked nicely. There was good soft tissue balancing. The tourniquet was now released. Additional hemostasis was achieved via electrocautery. A second gram of TXA was given. The wound again was irrigated with pulse lavage mechanical irrigation. The superficial soft tissues were infiltrated local analgesic. The extensor mechanism was repaired with Ethibond. We checked the repair with range of motion and it was stable. The subcutaneous soft tissues were repaired with Vicryl in layers. The skin was approximated with pernio/Dermabond. Sterile dressings were applied followed by loose web roll and Dex bandage. The patient was transferred to a bed, and taken to recovery in stable and satisfactory condition. Jl BAER assisted with this complex procedure.
[2022-01-24] MEDS ORDERED: HYDROmorphone 0.5 MG/0.5 ML SYRINGE IVP PRN ×3 (09:10)
[2022-01-24] MEDS ORDERED: HYDROcodone/APAP 5-325MG 1 EACH TAB PO PRN (09:10)
[2022-01-24] MEDS ORDERED: ONDANSETRON 4 MG/2 ML VIAL IVP PRN (09:10)
[2022-01-24] MEDS ORDERED: NALOXONE 0.4 MG/ML 1 ML VIAL IV PRN (09:10)
[2022-01-24 09:48] LABS: Glucose,Whole Blood 177 mg/dL (70-110)
--- NOTE | 2022-01-24 11:51 | XR ---
Limited left knee HISTORY: Status post left knee arthroplasty 2 views of the left knee, correlation to prior exam 11/20/2021 Patient is status post left knee arthroplasty. There is anatomic alignment. Lucencies present within the soft tissues. There is soft tissue swelling. IMPRESSION: Orthopedic follow-up.
[2022-01-24] MEDS: HYDROmorphone 0.5 MG/0.5 ML SYRINGE IVP PRN ×2 (13:00→13:09)
[2022-01-24] MEDS: HYDROcodone/APAP 7.5-325MG 1 EACH TAB PO PRN ×2 (13:50→21:11)
[2022-01-24 14:07] LABS: Glucose,Whole Blood 194 mg/dL (70-110)
[2022-01-24] MEDS ORDERED: DEXTROSE 50% SYRINGE 50 ML IVP PRN ×2 (14:17)
[2022-01-24] MEDS: ceFAZolin 3 GM in SODIUM CHLORIDE 0.9% 100 ML IVPB SCH ×2 (15:29→22:54)
[2022-01-24 16:21] LABS: Glucose,Whole Blood 255 mg/dL (70-110)
[2022-01-24] MEDS: INSULIN ASPART (NovoLOG) 100 UNIT/ML VIAL SQ SCH ×2 (17:21→21:50)
[2022-01-24 19:28] LABS: Glucose,Whole Blood 206 mg/dL (70-110)
[2022-01-24 20:25] VITALS: RESP 18
[2022-01-24] MEDS ORDERED: ATORVASTATIN 20 MG TAB PO SCH (21:00)
[2022-01-24] MEDS ORDERED: INSULIN DETEMIR (LEVEMIR) 100 UNIT/ML SYR SQ SCH (21:00)
[2022-01-24] MEDS ORDERED: METOPROLOL SUCCINATE (ER) 25 MG TAB.ER.24H PO SCH (21:00)
[2022-01-24] MEDS ORDERED: ENOXAPARIN 30 MG/0.3 ML SYRINGE SQ SCH (21:00)
[2022-01-24] MEDS: SENNOSIDES-DOCUSATE SODIUM 1 EACH TAB PO SCH ×2 (21:11→21:14)
[2022-01-24] MEDS: FAMOTIDINE 20 MG TAB PO SCH (21:12)
[2022-01-25] MEDS: HYDROcodone/APAP 7.5-325MG 1 EACH TAB PO PRN (05:31)
[2022-01-25] MEDS: LACTATED RINGERS 1,000 ML IV SCH ×2 (05:31→05:32)
[2022-01-25 06:59] LABS: Glucose,Whole Blood 155 mg/dL (70-110)
[2022-01-25] MEDS ORDERED: INSULIN ASPART (NovoLOG) 100 UNIT/ML VIAL SQ SCH (07:30)
[2022-01-25] MEDS: INSULIN ASPART (NovoLOG) 100 UNIT/ML VIAL SQ SCH ×2 (07:37→11:52)
[2022-01-25] MEDS: FAMOTIDINE 20 MG TAB PO SCH (07:38)
[2022-01-25 08:19] VITALS: BP 176/87; PULSE 59; TEMP 97.7
[2022-01-25 08:40] LABS: Basophils # (A) 0 X 10*3/uL (0.00-0.10); Basophils % (A) 0 %; Eosinophils # (A) 0.01 X 10*3/uL (0.04-0.35); Eosinophils % (A) 0.1 %; HGB 11.7 g/dL (13.0-17.0); Immature Grans, Automated 0.3 %; Lymphocytes # (A) 1.09 X 10*3/uL (0.90-5.00); Lymphocytes % (A) 15.4 %; MCH 29.7 pg (27.0-32.0); MCHC 32.5 g/dL (32.0-37.0); MCV 91.4 fL (80.0-97.0); Mean Platelet Volume 10.9 fL (9.5-12.2); Monocytes # (A) 0.57 X 10*3/uL (0.20-1.00); Monocytes % (A) 8.1 %; NRBC Per 100 WBC 0 /100 WBCS (0.0-0.0); Neutrophils # (A) 5.38 X 10*3/uL (1.80-7.70); Neutrophils % (A) 76.1 %; Platelet Count 117 X 10*3/uL (140-440); RBC 3.94 X 10*6/uL (4.40-5.60); RDW 13.6 % (11.5-14.5); WBC 7.07 X 10*3/uL (4.50-10.00)
[2022-01-25 08:59] LABS: African American GFR (CKD) 88.6 (60.0-200.0); Anion Gap 8.3 mmol/L (10.00-18.00); BUN/Creat Ratio 13.2 Ratio (12.00-20.00); Blood Urea Nitrogen 13.2 mg/dL (9.0-27.0); Calcium 8.9 mg/dL (8.7-10.3); Carbon Dioxide 28.7 mmol/L (20.0-27.5); Non-African American GFR(CKD) 76.5 (60.0-200.0); Potassium 4.4 mmol/L (3.5-5.5)
[2022-01-25] MEDS ORDERED: VALSARTAN 160 MG TAB PO SCH (09:00)
[2022-01-25] MEDS ORDERED: APIXABAN 2.5 MG TABLET PO SCH (09:00)
[2022-01-25] MEDS ORDERED: hydroCHLOROthiazide 12.5 MG CAP PO SCH (09:00)
--- NOTE | 2022-01-25 09:36 | P.PN ---
Subjective Progress Note Date: 01/25/22 Principal diagnosis: status post left total knee arthroplasty Patient was evaluated at bedside, he is resting in his hospital chair. Patient did work with physical therapy today, he noticed some increase in pain. He is utilizing the eCollect pain ball. Patient is urinating with no difficulties at this time. Currently patient has no headaches, lightheadedness, chest pain or duke rtness of breath. Objective - Vital Signs Vital signs: Vital Signs Temp 97.7 F 01/25/22 08:00 Pulse 59 L 01/25/22 08:00 Resp 18 01/25/22 08:00 BP 176/87 01/25/22 08:00 Pulse Ox 97 01/25/22 08:00 FiO2 Intake & Output 01/24/22 01/25/22 01/25/22 18:59 06:59 18:59 Intake Total 750 1300 Output Total 50 1500 Balance 700 -200 Weight 117.3 kg Intake: IV 750 Intake, IV Titration 1300 Amount Lactated Ringers 1,000 ml 1200 @ 100 mls/hr IV .Q10H DESHAUN Rx#:[id number] ceFAZolin 3 gm In Sodium 100 Chloride 0.9% 100 ml @ 200 mls/hr IVPB Q8HR DESHAUN Rx#:[id number] Output: Urine 1500 Estimated Blood Loss 50 Other: Voiding Method Urinal # Voids 1 1 - Exam Left lower extremity: Incision is clean, dry, and intact. The foam dressing is in good condition. [There is minimal soft tissue swelling and ecchymosis surrounding the medial and lateral aspects of the incision.] Calf is soft, no tenderness with palpation. Plantar flexion, dorsiflexion, EHL, FHL are intact. Sensory exam to light touch throughout the extremity is intact, [dorsal pedis pulses 2+.] - Labs CBC & Chem 7: 01/25/22 04:42 01/25/22 04:42 Labs: Abnormal Lab Results - Last 24 Hours (Table) 01/24/22 01/24/22 01/24/22 Range/Units 09:47 14:01 15:22 RBC (4.40-5.60) X 10*6/uL Hgb (13.0-17.0) g/dL Hct (39.6-50.0) % Plt Count (140-440) X 10*3/uL Eosinophils # (0.04-0.35) X 10*3/uL Carbon Dioxide (20.0-27.5) mmol/L Anion Gap (10.00-18.00) mmol/L Glucose (70-110) mg/dL POC Glucose (mg/dL) 177 H 194 H (70-110) mg/dL Hemoglobin A1c 6.5 H (0.0-6.0) % 01/24/22 01/24/22 01/25/22 Range/Units 16:19 19:26 04:42 RBC 3.94 L (4.40-5.60) X 10*6/uL Hgb 11.7 L (13.0-17.0) g/dL Hct 36.0 L (39.6-50.0) % Plt Count 117 L (140-440) X 10*3/uL Eosinophils # 0.01 L (0.04-0.35) X 10*3/uL Carbon Dioxide (20.0-27.5) mmol/L Anion Gap (10.00-18.00) mmol/L Glucose (70-110) mg/dL POC Glucose (mg/dL) 255 H 206 H (70-110) mg/dL Hemoglobin A1c (0.0-6.0) % 01/25/22 01/25/22 Range/Units 04:42 06:57 RBC (4.40-5.60) X 10*6/uL Hgb (13.0-17.0) g/dL Hct (39.6-50.0) % Plt Count (140-440) X 10*3/uL Eosinophils # (0.04-0.35) X 10*3/uL Carbon Dioxide 28.7 H (20.0-27.5) mmol/L Anion Gap 8.30 L (10.00-18.00) mmol/L Glucose 154 H (70-110) mg/dL POC Glucose (mg/dL) 155 H (70-110) mg/dL Hemoglobin A1c (0.0-6.0) % Assessment and Plan Assessment: Postoperative day #1 status post left total knee arthroplasty Plan: Pain control, plan for discharge home on oral medication DVT prophylaxis, due to his history of previous DVTs, we'll utilize Eliquis 2.5mg bid for 14 days Wound care, instructions are discussed with patient, this including showering along with icing and elevating Home physical therapy/nursing after discharge Medical recommendations Discharge planning: Patient will be discharged home later today Time with Patient: Less than 30
--- NOTE | 2022-01-25 09:42 | P.DS ---
Providers Date of admission: 01/24/2022 Expected date of discharge: 01/25/22 Attending physician: Karri Damon Consults: 01/24/22 09:10 Consult Physician Routine Consulting Provider: Abisai Quinones Consult Reason/Comments: Medical management Do you want consulting provider notified?: Yes Primary care physician: Nestor Arboleda Hospital Course: Date of admission: 01/24/2022 Date of discharge: 01/25/2022 Admission diagnosis: Status post left total knee arthroplasty Discharge diagnosis: Same Attending physician: Dr. Damon Surgical procedures: Left total knee arthroplasty Brief history: Patient is a 71-year-old male with a history of progressive primary left knee osteoarthritis. At this point patient has failed conservative treatment measures and has opted to proceed with a elective left total knee arthroplasty. Hospital course: Details of patient's surgery can be found in operative report. Patient tolerated the procedure well and was subsequently transported to orthopedic floor. Patient's orthopeidc and medical care was provided daily. Patient had daily laboratory tests performed for evaluation of overall blood counts. Patient had daily physical therapy to include strengthening range of motion as well as education with walker ambulation. Patient was treated with Eliquis for their postoperative DVT prophylaxis during their inpatient stay. Patient was noted to have a relatively uneventful postoperative course. Patient reported satisfactory pain control with oral pain medications by postoperative day 0. Patient showed satisfactory progress with physical therapy. Patient moved steadily through the program and had no difficulty meeting the goals by postoperative day 1. Given patient's otherwise satisfactory course and having met physical therapy goals, plan is to discharge patient home on postoperative day 1. Discharge condition/disposition: Patient will be discharged home in stable condition. Discharge medications: Instructions are given on resumption of patient's normal daily medications per primary care recommendation, in addition patient will be prescribed [place] 7.5 mg/325 mg, Lyrica 150 mg, Colace 100 mg, MiraLAX 17 g. Discharge instructions: 1. Wound care and infection precautions, keep incision dry and covered while showering, no lotions, creams, moisturizers. No soaking, tubs, pools, hottubs. Do not scrub over the incision. 2. Weight-bear as tolerated with walker / cane until follow-up. 3. Ice and elevate when necessary. Do not exceed 20 minutes per hour with ice pack. 4. Utilize compression sleeve until seen at first follow up appointment. 5. Visiting nursing care. 6. Home physical therapy . 7. Pain meds and anticoagulants per prescription. 8. Pain medication has potential to cause constipation. Increase oral fluid and fiber intake. Contact primary care provider if you have not had a bowel movement within 48 hours after discharge 9. No anti-inflammatory medication until discussed at first post operative visit, this including Motrin, Aleve, Mobic, Diclofenac. 10. Follow up in office at 2 weeks postop with Jl Caruso PA-C/Anil Miller 11. Follow up with your primary care doctor 7-10 days after discharge. 12. Contact [facility] with any questions, . Wound care instructions: 1. Okay to remove foam dressing on 01/31/2022 2. Keep incision covered and dry until removal of the dressing 3. After removal of the dressing, okay to shower directly over the incision Procedures: Left total knee arthroplasty Patient Condition at Discharge: Good Plan - Discharge Summary Discharge Rx Participant: Yes New Discharge Prescriptions: New Apixaban [Eliquis] 2.5 mg PO BID #60 tab HYDROcodone/APAP 7.5-325MG [[place] 7.5] 1 each PO Q6HR PRN #28 tab PRN Reason: Pain Docusate [Colace] 100 mg PO DAILY #30 capsule Pregabalin [Lyrica] 75 mg PO BID 14 Days #21 cap No Action Atorvastatin [Lipitor] 20 mg PO HS Aspirin [Adult Low Dose Aspirin EC] 162 mg PO QAM metFORMIN HCL [Glucophage] 500 mg PO BID Valsartan/Hydrochlorothiazide [Valsartan-Hctz 320-12.5 mg Tab] 1 each PO QAM [place]-3 Fatty Acids/Fish Oil [Fish Oil 1,000 mg Softgel] 1 each PO DAILY Metoprolol Succinate [Metoprolol Succinate ER] 25 mg PO HS Discharge Medication List Aspirin [Adult Low Dose Aspirin EC] 162 mg PO QAM 07/05/15 [History] Atorvastatin [Lipitor] 20 mg PO HS 07/05/15 [History] metFORMIN HCL [Glucophage] 500 mg PO BID 08/26/19 [History] [place]-3 Fatty Acids/Fish Oil [Fish Oil 1,000 mg Softgel] 1 each PO DAILY 12/14/20 [History] Valsartan/Hydrochlorothiazide [Valsartan-Hctz 320-12.5 mg Tab] 1 each PO QAM 12/14/20 [History] Metoprolol Succinate [Metoprolol Succinate ER] 25 mg PO HS 01/22/22 [History] Apixaban [Eliquis] 2.5 mg PO BID #60 tab 01/25/22 [Rx] Docusate [Colace] 100 mg PO DAILY #30 capsule 01/25/22 [Rx] HYDROcodone/APAP 7.5-325MG [[place] 7.5] 1 each PO Q6HR PRN #28 tab 01/25/22 [Rx] Pregabalin [Lyrica] 75 mg PO BID 14 Days #21 cap 01/25/22 [Rx] Follow up Appointment(s)/Referral(s): Kulwant Caruso PAC [PHYSICIAN [employer] REPA[employer]MAN] - 2 Weeks Activity/Diet/Wound Care/Special Instructions: Orthopedic Discharge Instructions: 1. Wound care and infection precautions, keep incision dry and covered while showering, no lotions, creams, moisturizers. No soaking, pools, hot tubs. Do not scrub over incision. 2. Weight-bear as tolerated with walker / cane until follow-up. 3. Ice and elevate when necessary. Do not exceed 20 minutes per hour with ice pack. 4. Utilize compression sleeve until seen at first follow up appointment. 5. Pain meds and anticoagulants per prescription. 6. Pain medication has potential to cause constipation. Increase oral fluid and fiber intake. Contact primary care provider if you have not had a bowel movement within 48 hours after discharge. 7. No anti-inflammatory medication until discussed at first post operative visit, this including Motrin, Aleve, Mobic, Diclofenac. 8. Follow up in office at 2 weeks postop with Jl Caruso PA-C/Anil Gomez PA-C 9. Follow up with your primary care doctor 7-10 days after discharge. 10. Contact [facility] with any questions, . Wound care instructions: 1. Okay to remove foam dressing as an 01/31/2022 2. Okay to shower directly over the incision after removal of the dressing 3. Keep the foam dressing covered and dry while showering until removal Discharge Disposition: HOME WITH HOME HEALTH SERVICES
--- NOTE | 2022-01-25 09:59 | P.PN ---
Progress Note - Text Progress Note Date: 01/25/22 Postoperative day # 1 status post total knee arthroplasty, on adductor canal perineural catheter placed for postoperative analgesia. Ropivacaine 0.2% 8 mL per hour through ON-Q pump continuous infusion. Pain is well controlled. On visual analog scale 4/10 Patient is taking PRN oral pain medications. Catheter site: Looks Ok. There is no erythema or tenderness. Continue with the current pain management plan and will follow.
[2022-01-25] MEDS ORDERED: MULTIVITAMINS, THERA 1 EACH TAB PO SCH (12:00)
--- NOTE | 2022-01-25 14:18 | CONS ---
CONSULTATION DATE OF SERVICE: 01/25/2022 REASON FOR CONSULTATION: Advice regarding diabetes mellitus and other medical issues, requested by Orthopedic Surgery. HISTORY OF PRESENT ILLNESS: This 71-year-old gentleman with a past medical history of diabetes mellitus, DVT, being followed by Dr. Arboleda in the outpatient setting, underwent left total knee arthroplasty. There is no history of any fever, rigors or chills. No history of headache, loss of consciousness, seizures. PAST MEDICAL HISTORY: History of diabetes mellitus, DVT, hypertension, hyperlipidemia. MEDICATIONS: Home medications are reviewed and include metformin. Doses and the rest of the medications are noted. ALLERGIES: NONE. FAMILY HISTORY: History of pulmonary embolism. SOCIAL HISTORY: Previous history of smoking. REVIEW OF SYSTEMS: Fourteen-point review of systems negative except as mentioned earlier. PHYSICAL EXAMINATION: Pulse is 59. Blood pressure 176/87. Respiration 18. HEENT: Conjunctivae normal. NECK: No jugular venous distention. CARDIOVASCULAR: S1, S2 muffled. RESPIRATION: Breath sounds diminished at the bases. No rhonchi. No crackles. ABDOMEN: Soft, nontender. LEGS: Status post arthroplasty. NERVOUS SYSTEM: No focal deficit. JOINTS: As mentioned earlier. LABS: Reviewed. WBC 7.06, hemoglobin ntd. Other labs are noted. ASSESSMENT: 1. Status post left total knee joint arthroplasty. 2. Diabetes mellitus, type 2. 3. History of deep vein thrombosis. 4. Hypertension. 5. Hyperlipidemia. RECOMMENDATIONS AND DISCUSSION: In this 71-year-old gentleman who presented after surgery, I would recommend to continue the current medications, symptomatic treatment, DVT prophylaxis. Resume the home medications. Closely follow with Dr. Arboleda with follow-up labs. Further recommendations to follow. MMODL / IJN: [id number] / [facility]
== END 2022-01-25 12:41 | disposition home health service (06) ==
LOC: OR 06:03 → 4SSUR 13:12 → OR 01-25 12:41
PROVIDERS: ATTEND Orthopaedic Surgery
DX: M17.12 Unilateral primary osteoarthritis, left knee (principal); G89.18 Other acute postprocedural pain; I25.10 Atherosclerotic heart disease of native coronary artery without angina pectoris; I10 Essential (primary) hypertension; E11.69 Type 2 diabetes mellitus with other specified complication; E78.2 Mixed hyperlipidemia; E78.00 Pure hypercholesterolemia, unspecified; Z79.899 Other long term (current) drug therapy; Z79.84 Long term (current) use of oral hypoglycemic drugs; Z87.891 Personal history of nicotine dependence; Z79.82 Long term (current) use of aspirin; Z82.49 Family history of ischemic heart disease and other diseases of the circulatory system
CPT/HCPCS: 97161; 64999; 64448; 76942; 80048; 85025; 88300; 83036; 73560; 27447; C1776; C1713; J2250; J1100; J0690; J2405; J3010; J2795 ×2; J2704; J1170

== ENCOUNTER → 2022-02-05 | Outpatient (CLI) | payer MEDICARE ==
--- NOTE | 2022-02-05 17:03 | US ---
EXAMINATION TYPE: US venous doppler duplex LE LT DATE OF EXAM: 02/05/2022 4:40 PM COMPARISON: CLINICAL HISTORY: M79.605 LT LEG PAIN. 01/26/2022 knee replacement. On blood thinners. Hx dvt left l eg. SIDE PERFORMED: Left TECHNIQUE: The lower extremity deep venous system is examined utilizing real time linear array sonog alejandra with graded compression, doppler sonography and color-flow sonography. VESSELS IMAGED: Common Femoral Vein Deep Femoral Vein Greater Saphenous Vein * Femoral Vein Popliteal Vein Small Saphenous Vein * Proximal Calf Veins (* superficial vessels) Left Leg: Negative for DVT Grayscale, color doppler, spectral doppler imaging performed of the deep veins of the lower extremiti es. There is normal flow, compressibility, vascular waveforms. IMPRESSION: No evidence of deep vein thrombosis of the left lower extremity.
== END | disposition home or self-care (01) ==
LOC: RADUSWWP 16:12
PROVIDERS: ATTEND Internal Medicine
DX: M79.605 Pain in left leg (principal)

== ENCOUNTER → 2023-05-10 | Outpatient (CLI) | payer MEDICARE ==
--- NOTE | 2023-05-10 15:44 | US ---
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 TECHNIQUE: Carotid duplex ultrasound examination. Indirect Doppler criteria was utilized. 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 Criteria for Assigning % of Stenosis / Diameter reduction (Estimation based on the indirect measurements of the internal carotid artery velocities (ICA PSV). 1. Normal (no stenosis)=ICA PSV < 125 cm/s: ratio < 2.0: ICA EDV<40 cm/s. 2. Less than 50% stenosis=ICA PSV < 125 cm/s: ratio < 2.0: ICA EDV<40 cm/s. 3. 50 to 69% stenosis=ICA PSV of 125 to 230 cm/s: ration 2.0 ? 4.0: ICA EDV 40-100 cm/s. 4. Greater than 70% stenosis to near occlusion= ICA PSV > 230 cm/s: ratio > 4.0: ICA EDV > 100 cm/s. 5. Near occlusion= ICA PSV velocities may be low or undetectable: variable ratio and ICA EDV. 6. Total occlusion=unable to detect flow.
== END | disposition home or self-care (01) ==
LOC: RADUSWWP 13:12
PROVIDERS: ATTEND Internal Medicine
DX: I65.23 Occlusion and stenosis of bilateral carotid arteries (principal)
CPT/HCPCS: 93880

== ENCOUNTER → 2023-05-10 | Outpatient (CLI) | payer MEDICARE ==
--- NOTE | 2023-05-10 17:17 | CA ---
Transthoracic Echo Report Name: Cory Luke Age: 72 Gender: M : 1950 Exam Date: 05/10/2023 12:50 Exam Location: [place] [facility] Ht (in): 68 Wt (lb): 235 Ordering Physician: Nestor Arboleda MD Attending/Referring Phys: Nestor Arboleda MD Registered Appraiser Leighann Renae [facility] Procedure CPT: Indications: I25.10 ATHSCL HEART DISEASE OF [place] CORONARY ART Cardiac Hx: Technical Quality: Fair Contrast 1: Total Dose (mL): Contrast 2: Total Dose (mL): MEASUREMENTS (Male / Female) Normal Values 2D ECHO LV Diastolic Diameter PLAX 5.0 cm 4.2 - 5.9 / 3.9 - 5.3 cm LV Systolic Diameter PLAX 3.9 cm IVS Diastolic Thickness 1.1 cm 0.6 - 1.0 / 0.6 - 0.9 cm LVPW Diastolic Thickness 1.2 cm 0.6 - 1.0 / 0.6 - 0.9 cm LV Relative Wall Thickness 0.5 LVOT Diameter 2.0 cm Ascending Aorta Diameter 2.9 cm M-MODE Aortic Root Diameter MM 2.8 cm LA Systolic Diameter MM 3.9 cm LA Ao Ratio MM 1.4 AV Cusp Separation MM 2.1 cm DOPPLER AV Peak Velocity 126.0 cm/s AV Peak Gradient 6.3 mmHg AV Mean Velocity 94.9 cm/s AV Mean Gradient 3.9 mmHg AV Velocity Time Integral 24.5 cm LVOT Peak Velocity 92.1 cm/s LVOT Peak Gradient 3.4 mmHg LVOT Velocity Time Integral 21.5 cm LVOT Stroke Volume 70.1 cm??? LVOT Stroke Volume Index 32.0 ml/m??? LVOT Cardiac Index 2131.7 cm???/min???m??? AV Area Cont Eq vti 2.9 cm??? AV Area Cont Eq pk 2.4 cm??? Mitral E Point Velocity 48.7 cm/s Mitral A Point Velocity 69.5 cm/s Mitral E to A Ratio 0.7 MV Deceleration Time 205.3 ms LV E' Lateral Velocity 7.2 cm/s Mitral E to LV E' Lateral Ratio 6.8 LV E' Septal Velocity 6.1 cm/s Mitral E to LV E' Septal Ratio 7.9 Right Atrial Pressure 3.0 mmHg FINDINGS Left Ventricle Mildly increased left ventricular wall thickness. Left ventricular cavity size normal. Normal left ventricular systolic function with no obvious regional wall motion abnormalities. Left ventricular ejection fraction is estimated at 55- 60%. Right Ventricle Mild right ventricular dilatation. Right Atrium Normal right atrial size. Left Atrium Normal left atrial size. Mitral Valve Structurally normal mitral valve. Mild mitral regurgitation. Aortic Valve Trileaflet aortic valve. No aortic valve stenosis or regurgitation. Tricuspid Valve Structurally normal tricuspid valve. No tricuspid regurgitation. Pulmonic Valve Pulmonic valve not well visualized. Pericardium No pericardial effusion. Echo free space anterior to the right ventricle likely represents a fat pad. Aorta Normal size aortic root and proximal ascending aorta. CONCLUSIONS 1. Normal left ventricular size and systolic function 2. Mild mitral regurgitation Previewed by: Dr. Hannah Jha MD (Electronically Signed) Final Date: 10 May 2023 17:16
== END | disposition home or self-care (01) ==
LOC: RADECHMAIN 12:46
PROVIDERS: ATTEND Internal Medicine
DX: I25.10 Atherosclerotic heart disease of native coronary artery without angina pectoris (principal); I34.0 Nonrheumatic mitral (valve) insufficiency
CPT/HCPCS: 93306

== ENCOUNTER → 2023-05-30 | Outpatient (CLI) | payer MEDICARE ==
[~2023-05-30] MED LIST changes: -ACETAMINOPHEN TAB 500 MG TAB PO PRN; -MELOXICAM 7.5 MG TAB PO PRN; +REGADENOSON 0.4 MG/5 ML SYRINGE IV PRN; -TRANEXAMIC ACID IN NACL,ISO-OS 1,000 MG in SALINE 1 100ML.BAG IVPB PRN
--- NOTE | 2023-05-30 11:29 | CA ---
Lexiscan Nuclear Stress Test Report Name: Cory Luke Exam Date: 05/30/2023 09:52 Exam Location: [facility] Stress Ht (in): 68 Wt (lb): 230 BSA: 2.17 Ordering Phys: Nestor Arboleda MD Referring Phys: N[place],, Technologist: ISAURA,, Age: 72 Gender: M : 1950 Procedure CPT: Indications: I25.10 ATHSCL HEART DISEASE OF [place] CORONARY ART ICD-10 Codes: Patient History: Hypertension, hypercholesterolemia and Family history of heart disease Medications: Meds past 24 hrs: Pretest Chest Pain: STRESS TEST Lexiscan Protocol Exercise Duration (min:sec): 02:[address] Depressions (mm): Angina Score: Sahu Score: Resting HR (bpm): 70 Peak HR (bpm): 88 Resting BP (mmHg): 113 / 75 Peak BP (mmHg): 122 / 73 MPHR: 150 Target HR: 128 % MPHR: 59 METS: 1.0 Total Dose: Peak Dose: Atropine: Double Product: 39736 BP Response: Stress Termination: Infusion complete Stress Symptoms: No chest pain or symptoms Stress Summary: ECG ANALYSIS Resting ECG: Sinus rhythm right bundle branch block ST-T wave changes Stress ECG: Patient was given intravenous Lexiscan as per protocol did not have chest pain and EKG changes are nondiagnostic CONCLUSIONS Inconclusive EKG part of the stress test due to baseline EKG abnormalities Cardial lead portion of the stress test will be reported separately Dr. Nolberto Vigil MD (Electronically Signed) Final Date: 30 May 2023 11:28
--- NOTE | 2023-05-30 12:24 | NM ---
EXAMINATION TYPE: NM stress lexiscan cardiolite DATE OF EXAM: 05/30/2023 COMPARISON: NONE CLINICAL INDICATION: Male, 72 years old with history of I25.10 ATHSCL HEART DISEASE OF [place] CORONAR Y ART; TECHNIQUE: After the intravenous administration of 9.9 mCi Tc 99m Sestamibi - Cardiolite resting SPE CT images acquired 45 minutes post injection. The patient received 0.4mg Lexiscan, 25.5 mCi Tc 99m Sestamibi - Stress images obtained [address] injection FINDINGS: Review of stress and rest SPECT images demonstrates small focal area of possible ischemia apical late ral wall. Adjacent fixed defect noted as well. Otherwise homogeneous distribution. Gated analysis [facility] ws normal wall motion with an estimated left ventricular ejection fraction of 70 %. IMPRESSION: small focal area of possible ischemia apical lateral wall.
== END | disposition home or self-care (01) ==
LOC: RADNMMAIN 07:46
PROVIDERS: ATTEND Internal Medicine
DX: I25.10 Atherosclerotic heart disease of native coronary artery without angina pectoris (principal); R94.31 Abnormal electrocardiogram [ECG] [EKG]
CPT/HCPCS: 93017; 78452; A9500; J2785

== ENCOUNTER → 2023-08-14 | Outpatient (CLI) | payer MEDICARE ==
--- NOTE | 2023-08-15 11:09 | CA ---
Transthoracic Echo Report Name: Cory Luke Age: 73 Gender: M : 1950 Exam Date: 08/14/2023 17:50 Exam Location: [place] [facility] Ht (in): 68 Wt (lb): 235 Ordering Physician: Nestor Arboleda MD Attending/Referring Phys: Policy Adviser Babita Rogers RDCS Procedure CPT: Indications: I25.10 ATHSCL HEART DISEASE OF [place] CORONARY ART Cardiac Hx: Technical Quality: Fair Contrast 1: Total Dose (mL): Contrast 2: Total Dose (mL): MEASUREMENTS (Male / Female) Normal Values 2D ECHO LV Diastolic Diameter PLAX 5.2 cm 4.2 - 5.9 / 3.9 - 5.3 cm LV Systolic Diameter PLAX 3.6 cm IVS Diastolic Thickness 1.4 cm 0.6 - 1.0 / 0.6 - 0.9 cm LVPW Diastolic Thickness 1.3 cm 0.6 - 1.0 / 0.6 - 0.9 cm LV Relative Wall Thickness 0.5 RV Internal Dim ED PLAX 3.3 cm LA Systolic Diameter LX 3.9 cm 3.0 - 4.0 / 2.7 - 3.8 cm LV Diastolic Volume MOD 4C 120.5 cm??? LV Systolic Volume MOD 4C 48.4 cm??? LV Ejection Fraction MOD 4C 59.9 % LV Cardiac Index MOD 4C 1911.7 cm???/min???m??? LV Diastolic Length 4C 8.6 cm LV Systolic Length 4C 7.0 cm LV Diastolic Volume MOD 2C 62.7 cm??? LV Systolic Volume MOD 2C 33.0 cm??? LV Ejection Fraction MOD 2C 47.4 % LV Cardiac Index MOD 2C 786.4 cm???/min???m??? LV Diastolic Length 2C 7.5 cm LV Systolic Length 2C 6.6 cm LA Volume 58.0 cm??? 18 - 58 / 22 - 52 cm??? LA Volume Index 25.2 cm???/m??? 16 - 28 cm???/m??? M-MODE Aortic Root Diameter MM 3.4 cm MV E Point Septal Separation 0.4 cm AV Cusp Separation MM 2.0 cm DOPPLER AV Peak Velocity 130.0 cm/s AV Peak Gradient 6.8 mmHg MV Area PHT 2.8 cm??? Mitral E Point Velocity 72.9 cm/s Mitral A Point Velocity 85.8 cm/s Mitral E to A Ratio 0.8 MV Deceleration Time 269.2 ms MV E' Velocity 5.2 cm/s Mitral E to MV E' Ratio 14.0 TR Peak Velocity 217.3 cm/s TR Peak Gradient 18.9 mmHg Right Ventricular Systolic Press 23.9 mmHg FINDINGS Left Ventricle Left ventricular ejection fraction is estimated at 55-60 %. Left ventricular cavity size normal. Mildly increased septal wall thickness. Right Ventricle Normal right ventricular size. Right ventricular systolic pressure within normal limits. Right Atrium Normal right atrial size. Left Atrium Normal left atrial size. Mitral Valve Structurally normal mitral valve. No mitral stenosis, regurgitation or prolapse. Aortic Valve Trileaflet aortic valve. No aortic valve stenosis or regurgitation. Tricuspid Valve Structurally normal tricuspid valve. Trace to mild tricuspid regurgitation. Pulmonic Valve Structurally normal pulmonic valve. No pulmonic regurgitation. Pericardium No pericardial effusion. Aorta Normal size aortic root and proximal ascending aorta. CONCLUSIONS Left ventricular ejection fraction 55-60% Mild increased left ventricular wall thickness No mitral regurgitation Trace to mild tricuspid regurgitation No pericardial effusion RVSP 24 Previewed by: Dr. Dc Matamoros DO (Electronically Signed) Final Date: 15 August 2023 11:08
== END | disposition home or self-care (01) ==
LOC: RADECHMAIN 17:34
PROVIDERS: ATTEND Internal Medicine
DX: I36.1 Nonrheumatic tricuspid (valve) insufficiency (principal); I25.10 Atherosclerotic heart disease of native coronary artery without angina pectoris; I51.89 Other ill-defined heart diseases
CPT/HCPCS: 93306